=== PATIENT | male | born 1980 | race Caucasian/White ===

== ENCOUNTER 2016-12-05 19:38 | Emergency (ER) | payer BC ==
[~2016-12-05] VITALS: Ht 185.4 cm; Wt 105.1 kg
[~2016-12-05 19:38] MED LIST: ANTIVERT25 MG PO; DAILY MULTIPLE1 EACH PO; HYDROCODON-ACE1 EAC7 PO; LEXAPRO10 MG PO; MOTRIN800 MG PO; OXYELITE PRO PO; VICODIN 5-3001 EACH PO
[2016-12-05] MEDS ORDERED: NORCO 5/3251 TABLET PO (20:26)
[2016-12-05] MEDS ORDERED: PREDNISONE50 MG PO (20:26)
[2016-12-05] MEDS ORDERED: FLEXERIL5 MG PO (20:26)
[2016-12-05 20:45] VITALS: BP 142/79
== END 2016-12-05 20:46 | disposition home or self-care (01) ==
LOC: EME 19:38
DX: M54.5 Low back pain (principal)
CPT/HCPCS: 99281; 99283; J2270; J7512

== ENCOUNTER 2017-02-07 17:55 | Emergency (ER) | payer BC ==
[~2017-02-07] VITALS: Ht 185.4 cm; Wt 106.5 kg
[~2017-02-07 17:55] MED LIST changes: +FLEXERIL5 MG PO; +NORCO 5/3251 TABLET PO; +PREDNISONE50 MG PO
[2017-02-07] MEDS ORDERED: PERCOCET 5/31 TABLET PO (22:25)
[2017-02-07 22:36] VITALS: BP 151/94
== END 2017-02-07 22:37 | disposition home or self-care (01) ==
LOC: EME 17:55
DX: M51.26 Other intervertebral disc displacement, lumbar region (principal); S80.12XA Contusion of left lower leg, initial encounter; W19.XXXA Unspecified fall, initial encounter; Z98.890 Other specified postprocedural states; M48.061 Spinal stenosis, lumbar region without neurogenic claudication; M51.36 Other intervertebral disc degeneration, lumbar region; M47.896 Other spondylosis, lumbar region
CPT/HCPCS: 72131; 73590; 99281; 99284; J1885; J2270